=== PATIENT | male | born 1975 | race Two or more races ===

== ENCOUNTER → 2024-09-19 | Outpatient (CLI) | payer MEDICAID, SELFPAY ==
--- NOTE | 2024-09-19 16:30 | XR_ITS ---
Examination: CT chest, without intravenous contrast. Sagittal and coronal 2-D reconstructions. Exam date and time: September 19, 2024 1829 hours INDICATIONS: Smoking history 20 years, also history coccidioidomycosis CTDI:vol (mGy) 11.6 DLP: (mGycm) 421 Technique: Multiple 3.0 mm axial sections of the chest to been obtained. Bone and lung density settings are obtained. Sagittal and coronal 2-D reconstructions have been obtained. Low dose protocols were performed. One or more of the following dose reduction techniques were used; automated exposure control, adjustment of the mA and/or KV according to patient size, use of iterative reconstruction technique. Findings: No thoracic aortic aneurysm dilatation Pulmonary artery segments are not enlarged Significant calcification left main left anterior descending left circumflex coronary arteries 6 mm pulmonary nodule left upper lobe image 159 6 mm pulmonary nodule left midlung axial image 162 4 mm pulmonary nodule left upper lobe image 167 6 mm pulmonary nodule lingular segment image 171 3 mm pulmonary nodule right lower lobe image 227 No visualized liver or splenic lesion Contracted gallbladder No pancreatic mass Impression: Multiple noncalcified pulmonary nodules as above, with this study as baseline recommend 6 month follow-up CT chest without contrast
== END | disposition home or self-care (01) ==
LOC: CCTX 15:54
PROVIDERS: Referring Provider Family Medicine; Visit Provider Family Medicine
DX: Z12.2 Encounter for screening for malignant neoplasm of respiratory organs (principal); R91.8 Other nonspecific abnormal finding of lung field
CPT/HCPCS: 71271

== ENCOUNTER → 2025-04-30 | Outpatient (CLI) | payer MEDICAID, SELFPAY ==
--- NOTE | 2025-04-30 16:30 | XR_ITS ---
Examination: CT chest, without intravenous contrast. Sagittal and coronal 2-D reconstructions. Exam date and time: April 30, 2025, 1557 hours, comparison September 19, 2024 INDICATIONS: Diagnosis coccidioidomycosis 12 years ago, 6 mm nodule left upper lobe 6 mm nodule left midlung 4 mm nodule left upper lobe, 6 mm nodule lingular segment, 3 mm nodule right lower lobe on CT chest September 19, 2024 CTDI:vol (mGy) 11.1 DLP: (mGycm) 409 Technique: Multiple 3.0 mm axial sections of the chest to been obtained. Bone and lung density settings are obtained. Sagittal and coronal 2-D reconstructions have been obtained. Low dose protocols were performed. One or more of the following dose reduction techniques were used; automated exposure control, adjustment of the mA and/or KV according to patient size, use of iterative reconstruction technique. Findings: Thoracic aortic calcification no aneurysmal dilatation Pulmonary artery segment not enlarged Significant calcification left anterior descending left circumflex coronary arteries No paratracheal tracheobronchial or bronchopulmonary adenopathy Stable bilateral pulmonary nodules compared with September 19, 2024, no new pulmonary nodules No pneumonia or pulmonary edema or pleural disease No visualized liver or splenic lesion No gallstones No pancreatic or adrenal mass IMPRESSION: Stable bilateral pulmonary nodules compared with September 19, 2024, no new pulmonary nodules Suggest one continued 6-month follow-up CT chest without contrast
== END | disposition home or self-care (01) ==
LOC: CCTX 15:40
PROVIDERS: Referring Provider Family Medicine; Visit Provider Family Medicine
DX: R91.8 Other nonspecific abnormal finding of lung field (principal)
CPT/HCPCS: 71250